=== PATIENT | male | born 1975 | race Caucasian/White ===

== ENCOUNTER 2024-03-04 11:49 | Day surgery (SDC) | payer OTHER, SELFPAY ==
[2024-03-04 12:21] VITALS: BP 153/96; PULSE 76; RESP 16; TEMP 36.2; O2SAT 100
[2024-03-04] MEDS: LACTATED RINGERS 1,000 ML 42 ML IV (12:28)
--- NOTE | 2024-03-04 12:42 | P.HP_ITS ---
History of Present Illness History of Present Illness Date Patient Seen: 03/04/24 Time Patient Seen: 12:42 Chief complaint: Colonoscopy Narrative: Damaso is a 48-year-old man who is here for his first colonoscopy for colon cancer screening. He has no known family history of colon cancer. FORMERLY [facility], [facility] Surgical History (Updated 03/04/24 @ 12:12 by Mckayla Smith RN) History of mandibular surgery (~2008) Social History Smoking Status: Never smoker alcohol intake: current Meds Home Medications and Allergies Home Medications Medication Instructions Recorded Confirmed Type cyclobenzaprine 5 mg tablet 5 mg PO TID PRN muscle spasm #20 03/01/23 03/01/23 Rx tabs peg 3350-sod sulf,cycii-gwd-dta 1,000 ml PO DIRECTED #2,000 mL 01/27/24 Rx 178.7-7.3-0.5-1.12-0.9 gram oral soln (Suflave) finasteride 1 mg tablet 1 mg PO DAILY 03/04/24 03/04/24 History Allergies Allergy/AdvReac Type Severity Reaction Status Date / Time No Known Drug Allergies Allergy Verified 03/04/24 12:14 Exam Vital Signs (past 8 hours): - 03/04/24 12:21 Temperature 97.1 F L Pulse Rate 76 Respiratory Rate 16 Blood Pressure 153/96 H Pulse Oximetry 100 Oxygen Delivery Method Room Air Oxygen Delivery Method Room Air Const General: healthy appearing Resp Effort & Inspection: normal respiratory effort Assessment & Plan Assessment and plan (1) Colon cancer screening: Status: Acute Plan We reviewed the risks and benefits of colonoscopy for colon cancer screening and he would like to proceed. Time-Based Coding :: [TOTAL MINUTES] spent with patient and on the chart (including review of chart, obtaining history, exam, reviewing outside data, placing orders, documenting exam and treatment plan, and counseling patient) on [DATE].
[2024-03-04 13:51] VITALS: BP 122/78; PULSE 76; RESP 12; TEMP 36.3; O2SAT 98
--- NOTE | 2024-03-04 13:51 | PM.OP.COLON ---
Operative Date/Time/Diagnoses Date of procedure: 03/04/24 Time of procedure: 13:51 Pre-op diagnosis: Colon cancer screening Post-op diagnosis: same Procedure & Clinicians Study performed: Colonoscopy Same procedure as scheduled: Yes Surgeon: Abdifatah Noe Procedure Notes Procedure in detail: Surgeon: Abdifatah Noe MD Anesthesia: Мария Zuluaga DO Procedure: The patient was brought to the endoscopy suite, placed in left lateral decubitus position. The patient was connected to monitoring devices. A time-out was performed. Sedation was administered. Once the patient was adequately sedated, a digital rectal exam was performed and was normal. The scope was then inserted and advanced to the cecum where the appendiceal orifice was identified and photographed. The scope was then slowly withdrawn over greater than 6 minutes. The mucosa was thoroughly inspected. No abnormalities were found. The scope was retroflexed in the rectum. No abnormalities were seen. The scope was straightened and removed. The patient was awakened and brought to recovery. Scope withdrawal time: 7 minutes Sedation time: 15 minutes EBL: 0 Findings: Normal colon Post-procedure Recommendations: Colonoscopy in 10 years Disposition: PACU
[2024-03-04 13:56] VITALS: BP 117/75; PULSE 69; RESP 12; O2SAT 99
[2024-03-04 14:01] VITALS: BP 128/83; PULSE 69; RESP 16; TEMP 36.3; O2SAT 99
[2024-03-04 14:05] VITALS: BP 135/92; PULSE 72; RESP 16; TEMP 36.3; O2SAT 99
== END 2024-03-04 14:12 | disposition home or self-care (01) ==
PROVIDERS: Referring Provider Surgery; Visit Provider Surgery
PROC: 0DJD8ZZ Inspection of Lower Intestinal Tract, Via Natural or Artificial Opening Endoscopic (ICD-10-PCS; CPT 45378; principal; 2024-03-04 13:15)
DX: Z12.11 Encounter for screening for malignant neoplasm of colon (principal)
CPT/HCPCS: 45378; J2704